=== PATIENT | female | born 1990 | race Two or more races ===

== ENCOUNTER → 2018-10-10 | Outpatient (CLI) | payer OTHER ==
[2018-10-10 14:49] LABS: FREE T4 (FREE THYROXINE) 0.99 ng/dL (0.78-2.19)
[2018-10-10 15:03] LABS: THYROID STIMULATING HORMONE 1.44 uIU/mL (0.47-4.68)
== END ==
LOC: OD 13:42
PROVIDERS: ATTEND Nurse Practitioner Psychiatric/Mental Health
DX: F33.0 Major depressive disorder, recurrent, mild (principal)
CPT/HCPCS: 36415; 84439; 84443